=== PATIENT | female | born 1950 | race Asian ===

== ENCOUNTER 2017-10-02 07:20 | Day surgery (SDC) | payer OTHER ==
[2017-09-28 10:05] VITALS: BMI 29.7
[2017-10-02] MEDS ORDERED: ePHEDrine SULFATE 50 MG/1 ML AMPULE ONE (07:38)
[2017-10-02] MEDS ORDERED: PROPOFOL 20 ML ONE ×2 (07:38)
[2017-10-02] MEDS ORDERED: LIDOCAINE HCL 2% (20ML MULTI-DOSE VIAL) NR ONE (07:38)
[2017-10-02] MEDS ORDERED: PHENYLEPHRINE HCL 10 MG/1 ML SINGLE DOSE VIAL ONE (07:38)
[2017-10-02 08:11] VITALS: TEMP 97.6
[2017-10-02 08:38] VITALS: PULSE 48
[2017-10-02 10:43] VITALS: BP 143/74
== END 2017-10-02 09:15 | disposition home or self-care (01) ==
LOC: JASU-ENDO 07:20 → EDSEX 08:30 → JASU-ENDO 09:15
PROVIDERS: ATTEND Internal Medicine Gastroenterology
PROC: 0DJ08ZZ Inspection of Upper Intestinal Tract, Via Natural or Artificial Opening Endoscopic (ICD-10-PCS; principal; 2017-10-02 08:30)
DX: I85.00 Esophageal varices without bleeding (principal)